=== PATIENT | male | born 1970 | race Caucasian/White ===

== ENCOUNTER 2016-03-03 14:43 | Inpatient (IN) | payer OTHER ==
[2016-03-03 15:14] VITALS: BMI 24.1
--- NOTE | 2016-03-03 15:42 | HP ---
COWS - Scale Resting Pulse: 0= IN 80 or Below Sweatin=Flushed/Facial Moisture Restless Observation: 3= Extraneous Movement Pupil Size: 2= Moderately Dilated Bone or Joint Aches: 2= Severe Diffuse Aches Runny Nose/ Eye Tearin= Runny Nose/Eyes GI Upset > 30mins: 3= Vomiting/Diarrhea Tremor Observation: 2= Slight Tremor Visible Yawning Observation: 2= >3x During Session Anxiety or Irritability: 2=Irritable/Anxious Goose Flesh Skin: 0=Smooth Skin COWS Score: 20 CIWA Score - CIWA Score Nausea/Vomitin Muscle Tremors: 3 Anxiety: 3 Agitation: 3 Paroxysmal Sweats: 2 Orientation: 0-Oriented Tacttile Disturbances: 2-Mild Itch/Numbness/Burn Auditory Disturbances: 2-Mild Harshness/Frighten Visual Disturbances: 2-Mild Sensitivity Headache: 2-Mild CIWA-Ar Total Score: 22 Admission ROS [facility] - HPI Chief Complaint: i need help to stop using heroin,cocaine and alcohol Allergies/Adverse Reactions: Allergies Allergy/AdvReac Type Severity Reaction Status Date / Time No Known Allergies Allergy Verified 03/03/16 15:29 History of Present Illness: this 45 years old male with heroin,cocaine,alcohol dependence,withdrawal symptom ,last detox 12/20 [facility] not completed, infected left leg 1 week fb left neck seen in [facility] longest period of sobriety 5 years nicotine dependence Exam Limitations: No Limitations - Ebola screening Have you traveled outside of the country in the last 21 days: No Have you been sick,other than usual withdrawal symptoms: No - Review of Systems Constitutional: Chills, Loss of Appetite, Malaise, Night Sweats, Changes in sleep, Weakness EENT: reports: Tearing, Nose Congestion Respiratory: reports: No Symptoms reported Cardiac: reports: No Symptoms Reported GI: reports: Diarrhea, Nausea, Vomiting, Abdominal cramping : reports: No Symptoms Reported Musculoskeletal: reports: Back Pain, Joint Pain, Muscle Pain, Joint Stiffness Integumentary: reports: Dryness Neuro: reports: Headache, Tremors Endocrine: reports: No Symptoms Reported Hematology: reports: No Symptoms Reported Psychiatric: reports: No Sypmtoms Reported Other Systems: Reviewed and Negative Patient History - Patient Medical History Hx Anemia: No Hx Asthma: No Hx Chronic Obstructive Pulmonary Disease (COPD): No Hx Cancer: No Hx Cardiac Disorders: No Hx Congestive Heart Failure: No Hx Hypertension: No Hx Hypercholesterolemia: No Hx Pacemaker: No HX Cerebrovascular Accident: No Hx Seizures: No Hx Dementia: No Hx Diabetes: No Hx Gastrointestinal Disorders: No Hx Liver Disease: No Hx Genitourinary Disorders: No Hx Sexually Transmitted Disorders: No Hx Renal Disease (ESRD): No Hx Thyroid Disease: No Hx Human Immunodeficiency Virus (HIV): No (last 12/20) Hx Hepatitis C: Yes Hx Depression: No Hx Suicide Attempt: No Hx Bipolar Disorder: No Hx Schizophrenia: No Other Medical History: no suicidal,no homicidal - Patient Surgical History Past Surgical History: Yes Hx Appendectomy: Yes (since 1997) Other Surgical History: sugery of fx left mandibula in 2003 - PPD History Previous Implant?: Yes Documented Results: Negative w/o proof Implanted On Prior [facility] Admission?: No PPD to be Administered?: Yes - Smoking Cessation Smoking history: Current every day smoker Have you smoked in the past 12 months: Yes Aproximately how many cigarettes per day: 0 Cigars Per Day: 0 Hx Chewing Tobacco Use: No Initiated information on smoking cessation: Yes 'Breaking Loose' booklet given: 03/03/16 - Substance & Tx. History Hx Alcohol Use: Yes Hx Substance Use: Yes Substance Use Type: Alcohol, Cocaine, Heroin Hx Substance Use Treatment: Yes ([facility] 12/20) - Substances Abused Heroin Route: Injection Frequency: Daily Amount used: 12 BAGS Age of first use: 25 Date of Last Use: 03/03/16 Alcohol Route: Oral Frequency: Daily Amount used: 1 PINT AND 1/2 OF VODKA Age of first use: 18 Date of Last Use: 03/03/16 Cocaine Route: Injection Frequency: Daily Amount used: $30-40 Age of first use: 18 Date of Last Use: 03/03/16 Family Disease History - Family Disease History Family History: Denies Admission Physical Exam S - Vital Signs Vital Signs: Vital Signs - 24 hr 03/03/16 15:13 Temperature 96.8 F L Pulse Rate 76 Respiratory 18 Rate Blood Pressure 122/72 - Physical General Appearance: Yes: Moderate Distress, Tremorous, Irritable, Sweating, Anxious HEENTM: Yes: Nasal Congestion Respiratory: Yes: Lungs Clear Neck: Yes: Within Normal Limits Breast: Yes: Within Normal Limits Cardiology: Yes: Within Normal Limits, Regular Rhythm, Regular Rate, S1, S2 Abdominal: Yes: Within Normal Limits, Normal Bowel Sounds, Non Tender, Flat, Soft Genitourinary: Yes: Within Normal Limits Back: Yes: Muscle Spasm Musculoskeletal: Yes: Back pain, Muscle Pain Extremities: Yes: Tremors Neurological: Yes: manager training and development II-XII NML intact, Fully Oriented, Alert, Motor Strength 5/5 Integumentary: Yes: Dry, Track Dinh (cellulitis of left leg) - Diagnostic (1) Opioid dependence with withdrawal Current Visit: Yes Status: Acute (2) Cocaine dependence, uncomplicated Current Visit: Yes Status: Acute (3) Alcohol dependence with uncomplicated withdrawal Current Visit: Yes Status: Acute (4) Hepatitis C Current Visit: Yes Status: Acute (5) Cellulitis of left leg Current Visit: Yes Status: Acute (6) Foreign body Current Visit: Yes Status: Acute (7) Weight loss Current Visit: Yes Status: Acute Cleared for Admission [facility] - Detox or Rehab [facility] Level of Care: Medically Managed Detox Regimen/Protocol: Methadone/Librium [facility] Breath Alcohol Content Breath Alcohol Content: 0 Urine Drug Screen - Results Drug Screen Negative: No Urine Drug Screen Results: KIRBY-Cocaine, OPI-Opiates, OXY-Oxycodone
[2016-03-03] MEDS ORDERED: hydrOXYzine PAMOATE 50 MG CAPSULE (FP) PO PRN (15:52)
[2016-03-03] MEDS ORDERED: MAGNESIUM HYDROX 2400MG/30ML ORAL SUSPENSION 30 ML CUP PO PRN (15:52)
[2016-03-03] MEDS ORDERED: IBUPROFEN 400 MG TABLET (FP) PO PRN (15:52)
[2016-03-03] MEDS ORDERED: MAGNESIUM CITRATE 300 ML BOTTLE PO PRN (15:52)
[2016-03-03] MEDS ORDERED: LOPERAMIDE HCL 2 MG CAPSULE PO PRN (15:52)
[2016-03-03] MEDS ORDERED: chlordiazePOXIDE HCL 25 MG CAPSULE PO PRN (15:52)
[2016-03-03] MEDS ORDERED: P-EPHED 60MG/TRIPROLIDI 2.5MG TABLET PO PRN (15:52)
[2016-03-03] MEDS ORDERED: guaiFENesin/D-METHORPHAN HB 10 ML UNIT-DOSE CUPS PO PRN (15:52)
[2016-03-03] MEDS ORDERED: MENTHOL/PHENOL 1 EACH UD MM PRN (15:52)
[2016-03-03] MEDS ORDERED: MAG HYDROX/AL HYDROX/SIMETH 30 ML UNIT-DOSE CUP PO PRN (15:52)
[2016-03-03] MEDS ORDERED: ACETAMINOPHEN 325 MG TABLET (FP) PO PRN (15:52)
[2016-03-03] MEDS ORDERED: NICOTINE POLACRILEX 2 MG GUM BUC PRN (15:52)
[2016-03-03] MEDS ORDERED: METHADONE HCL 10 MG TABLET (FOR DETOX USE ONLY) PO ONE ×2 (18:30→23:00)
[2016-03-03] MEDS: CEPHALEXIN MONOHYDRATE 500 MG CAPSULE (UD) PO SCH (18:30)
[2016-03-03] MEDS ORDERED: chlordiazePOXIDE HCL 25 MG CAPSULE PO ONE (18:30)
[2016-03-03] MEDS: chlordiazePOXIDE HCL 25 MG CAPSULE PO SCH ×2 (18:32→23:40)
[2016-03-03] MEDS: NICOTINE 21 MG/24 HOURS TOPICAL PATCH TD SCH (18:36)
--- NOTE | 2016-03-03 19:07 | PN ---
S Progress Note Note: 6 pm received pharmacist call hydroxyzine counteracts with methadone discontinue hydroxyzine
[2016-03-03] MEDS ORDERED: diphenhydrAMINE HCL 50 MG CAPSULE PO PRN (22:00)
[2016-03-03] MEDS: cloNIDine HCL 0.1 MG TABLET PO SCH (23:40)
[2016-03-03] MEDS: BACITRACIN 0.9 GM PACKET TP SCH (23:40)
[2016-03-03] MEDS: THIAMINE HCL 100 MG TABLET (FP) PO SCH (23:40)
[2016-03-04] MEDS: CEPHALEXIN MONOHYDRATE 500 MG CAPSULE (UD) PO SCH ×5 (00:02→23:15)
[2016-03-04 02:19] LABS: URINE APPEARANCE SLCLOUDY; URINE BILIRUBIN NEGATIVE (NEGATIVE); URINE BLOOD NEGATIVE (NEGATIVE); URINE COLOR YELLOW; URINE GLUCOSE (UA) NEGATIVE (NEGATIVE); URINE KETONE NEGATIVE (NEGATIVE); URINE LEUK ESTERASE NEGATIVE (NEGATIVE); URINE NITRITE NEGATIVE (NEGATIVE); URINE PROTEIN NEGATIVE (NEGATIVE); URINE UROBILINOGEN NEGATIVE E.U./dl (0.2-1.0)
[2016-03-04] MEDS: chlordiazePOXIDE HCL 25 MG CAPSULE PO SCH ×4 (05:55→22:18)
[2016-03-04] MEDS: PRENATAL VITAMINS W/ FOLIC ACID TABLET (FP) PO SCH (09:22)
[2016-03-04] MEDS: cloNIDine HCL 0.1 MG TABLET PO SCH ×2 (09:22→22:20)
[2016-03-04] MEDS: NICOTINE 21 MG/24 HOURS TOPICAL PATCH TD SCH (09:23)
[2016-03-04] MEDS ORDERED: METHADONE HCL 10 MG TABLET (FOR DETOX USE ONLY) PO SCH (10:00)
[2016-03-04] MEDS: BACITRACIN 0.9 GM PACKET TP SCH ×2 (10:14→22:18)
[2016-03-04 11:29] LABS: MCH 26.6 pg (25.7-33.7); PLATELET COUNT 249 K/MM3 (134-434); WHITE BLOOD COUNT 7.3 K/mm3 (4.0-10.0)
--- NOTE | 2016-03-04 11:36 | PN ---
[facility] CIWA - CIWA Score Nausea/Vomitin Muscle Tremors: 3 Anxiety: 3 Agitation: 3 Paroxysmal Sweats: 3 Orientation: 0-Oriented Tacttile Disturbances: 1-Very Mild Itch/Numbness Auditory Disturbances: 0-None Visual Disturbances: 0-None Headache: 0-None Present CIWA-Ar Total Score: 16 S COWS - Scale Resting Pulse: 0= [place] 80 or Below Sweatin=Flushed/Facial Moisture Restless Observation: 1= Difficult to Sit Still Pupil Size: 1= Pupils >than Normal Bone or Joint Aches: 1= Mild Discomfort Runny Nose/ Eye Tearin= Nasal Congestion GI Upset > 30mins: 1= Stomach Cramp Tremor Observation of Outstretched Hands: 2= Slight Tremor Visible Yawning Observation: 0= None Anxiety or Irritability: 2=Irritable/Anxious Goose Flesh Skin: 0=Smooth Skin COWS Score: 11 [facility] Progress Note (SOAP) Subjective: interrupted sleep, sweats, nausea Objective: 03/04/16 11:35 Vital Signs Temperature 98.1 F 03/04/16 10:27 Pulse Rate 75 03/04/16 10:27 Respiratory Rate 18 03/04/16 10:27 Blood Pressure 100/55 03/04/16 10:27 O2 Sat by Pulse Oximetry (%) Laboratory Tests 03/03/16 03/04/16 22:00 07:30 WBC 7.3 RBC 4.44 Hgb 11.8 Hct 36.9 MCV 83.0 MCHC 32.0 RDW 16.0 H Plt Count 249 MPV 8.0 Urine Color Yellow Urine Appearance Slcloudy Urine pH 5.0 Ur Specific [place] 1.021 Urine Protein Negative Urine Glucose (UA) Negative Urine Ketones Negative Urine Blood Negative Urine Nitrite Negative Urine Bilirubin Negative Urine Urobilinogen Negative Ur Leukocyte Esterase Negative pending labs pt aox3 in nad ambulating Assessment: 03/04/16 11:35 withdrawl sx's Plan: cont. detox increase fluids f/up pending labs ensure bid
[2016-03-04 12:06] LABS: ALBUMIN 3.2 g/dl (3.4-5.0); ALK PHOS 70 U/L (45-117); ANION GAP 2 (8-16); BILIRUBIN,TOTAL 0.5 mg/dL (0.2-1.0); CALCIUM 9.1 mg/dL (8.5-10.1); CO2 34 mmol/L (21-32); CREATININE 0.9 mg/dL (0.7-1.3); GLUCOSE,RANDOM 78 mg/dL (74-106); SGOT/AST 17 U/L (15-37); SGPT/ALT 23 U/L (12-78); TOT PROT 8.3 g/dl (6.4-8.2)
[2016-03-04] MEDS: CYCLOBENZAPRINE HCL 10 MG TABLET (FP) PO PRN (22:18)
[2016-03-04] MEDS: THIAMINE HCL 100 MG TABLET (FP) PO SCH (22:20)
[2016-03-05] MEDS: CEPHALEXIN MONOHYDRATE 500 MG CAPSULE (UD) PO SCH ×4 (05:37→23:15)
[2016-03-05] MEDS: chlordiazePOXIDE HCL 25 MG CAPSULE PO SCH ×2 (05:37→10:08)
[2016-03-05] MEDS: METHADONE HCL 5 MG TABLET (FOR DETOX USE ONLY) PO SCH (10:08)
[2016-03-05] MEDS: PRENATAL VITAMINS W/ FOLIC ACID TABLET (FP) PO SCH (10:08)
[2016-03-05] MEDS: cloNIDine HCL 0.1 MG TABLET PO SCH ×2 (10:08→22:58)
[2016-03-05] MEDS: BACITRACIN 0.9 GM PACKET TP SCH ×2 (10:09→22:46)
[2016-03-05] MEDS: NICOTINE 21 MG/24 HOURS TOPICAL PATCH TD SCH (10:09)
--- NOTE | 2016-03-05 10:58 | PN ---
S CIWA - CIWA Score Nausea/Vomitin Muscle Tremors: 3 Anxiety: 2 Agitation: 2 Paroxysmal Sweats: 1-Minimal Palms Moist Orientation: 0-Oriented Tacttile Disturbances: 1-Very Mild Itch/Numbness Auditory Disturbances: 1-Very Mild Visual Disturbances: 1-Very Mild Sensitivity Headache: 2-Mild CIWA-Ar Total Score: 16 [facility] COWS - Scale Resting Pulse: 1= [place] 81-100 Sweatin=Flushed/Facial Moisture Restless Observation: 3= Extraneous Movement Pupil Size: 1= Pupils >than Normal Bone or Joint Aches: 2= Severe Diffuse Aches Runny Nose/ Eye Tearin= Runny Nose/Eyes GI Upset > 30mins: 2= Nausea/Diarrhea Tremor Observation of Outstretched Hands: 2= Slight Tremor Visible Yawning Observation: 2= >3x During Session Anxiety or Irritability: 2=Irritable/Anxious Goose Flesh Skin: 0=Smooth Skin COWS Score: 19 S Progress Note (SOAP) Subjective: alert,irritable,anxious,interrupted sleep,tremor,pain in the body and back, Objective: 03/05/16 10:56 Vital Signs Temperature 97.7 F 03/05/16 10:07 Pulse Rate 91 H 03/05/16 10:07 Respiratory Rate 18 03/05/16 10:07 Blood Pressure 102/65 03/05/16 10:07 O2 Sat by Pulse Oximetry (%) Laboratory Last Values WBC 7.3 K/mm3 (4.0-10.0) 03/04/16 07:30 RBC 4.44 M/mm3 (4.00-5.60) 03/04/16 07:30 Hgb 11.8 GM/dL (11.7-16.9) 03/04/16 07:30 Hct 36.9 % (35.4-49) 03/04/16 07:30 MCV 83.0 fl (80-96) 03/04/16 07:30 MCHC 32.0 g/dl (32.0-35.9) 03/04/16 07:30 RDW 16.0 % (11.9-15.9) H 03/04/16 07:30 Plt Count 249 K/MM3 (134-434) 03/04/16 07:30 MPV 8.0 fl (7.5-11.1) 03/04/16 07:30 Sodium 138 mmol/L (136-145) 03/04/16 07:30 Potassium 5.0 mmol/L (3.5-5.1) 03/04/16 07:30 Chloride 102 mmol/L (98-107) 03/04/16 07:30 Carbon Dioxide 34 mmol/L (21-32) H 03/04/16 07:30 Anion Gap 2 (8-16) L 03/04/16 07:30 BUN 21 mg/dL (7-18) H 03/04/16 07:30 Creatinine 0.9 mg/dL (0.7-1.3) 03/04/16 07:30 Creat Clearance w eGFR > 60 (>60) 03/04/16 07:30 Random Glucose 78 mg/dL (74-106) 03/04/16 07:30 Calcium 9.1 mg/dL (8.5-10.1) 03/04/16 07:30 Total Bilirubin 0.5 mg/dL (0.2-1.0) 03/04/16 07:30 AST 17 U/L (15-37) 03/04/16 07:30 ALT 23 U/L (12-78) 03/04/16 07:30 Alkaline Phosphatase 70 U/L (45-117) 03/04/16 07:30 Total Protein 8.3 g/dl (6.4-8.2) H 03/04/16 07:30 Albumin 3.2 g/dl (3.4-5.0) L 03/04/16 07:30 Urine Color Yellow 03/03/16 22:00 Urine Appearance Slcloudy 03/03/16 22:00 Urine pH 5.0 (5.0-8.0) 03/03/16 22:00 Ur Specific [place] 1.021 (1.001-1.035) 03/03/16 22:00 Urine Protein Negative (NEGATIVE) 03/03/16 22:00 Urine Glucose (UA) Negative (NEGATIVE) 03/03/16 22:00 Urine Ketones Negative (NEGATIVE) 03/03/16 22:00 Urine Blood Negative (NEGATIVE) 03/03/16 22:00 Urine Nitrite Negative (NEGATIVE) 03/03/16 22:00 Urine Bilirubin Negative (NEGATIVE) 03/03/16 22:00 Urine Urobilinogen Negative E.U./dl (0.2-1.0) 03/03/16 22:00 Ur Leukocyte Esterase Negative (NEGATIVE) 03/03/16 22:00 RPR Titer Nonreactive (NONREACTIVE) 03/04/16 07:30 03/05/16 10:59 Assessment: 03/05/16 10:59 withdrawal symptom Plan: continue detox
[2016-03-05] MEDS: chlordiazePOXIDE 5 MG CAPSULE PO SCH ×2 (17:37→22:47)
[2016-03-05] MEDS: THIAMINE HCL 100 MG TABLET (FP) PO SCH (22:47)
[2016-03-05] MEDS: CYCLOBENZAPRINE HCL 10 MG TABLET (FP) PO PRN (22:47)
[2016-03-06] MEDS: chlordiazePOXIDE 5 MG CAPSULE PO SCH ×2 (06:00→11:25)
[2016-03-06] MEDS: CEPHALEXIN MONOHYDRATE 500 MG CAPSULE (UD) PO SCH ×3 (06:33→17:30)
[2016-03-06] MEDS: PRENATAL VITAMINS W/ FOLIC ACID TABLET (FP) PO SCH (11:24)
[2016-03-06] MEDS: METHADONE HCL 5 MG TABLET (FOR DETOX USE ONLY) PO SCH (11:24)
[2016-03-06] MEDS: cloNIDine HCL 0.1 MG TABLET PO SCH ×2 (11:24→22:26)
[2016-03-06] MEDS: BACITRACIN 0.9 GM PACKET TP SCH ×2 (11:25→22:26)
[2016-03-06] MEDS: NICOTINE 21 MG/24 HOURS TOPICAL PATCH TD SCH (11:26)
--- NOTE | 2016-03-06 12:41 | PN ---
[facility] Progress Note (SOAP) Subjective: alert,irritable,anxious,pain in the body and back,interrupted sleep Objective: 03/06/16 12:41 Vital Signs Temperature 97.0 F L 03/06/16 10:00 Pulse Rate 76 03/06/16 10:00 Respiratory Rate 16 03/06/16 10:00 Blood Pressure 116/85 03/06/16 10:00 O2 Sat by Pulse Oximetry (%) Assessment: 03/06/16 12:41 withdrawal symptom Plan: continue detox
[2016-03-06] MEDS: chlordiazePOXIDE HCL 10 MG CAPSULE PO SCH ×2 (17:30→22:26)
[2016-03-06] MEDS: THIAMINE HCL 100 MG TABLET (FP) PO SCH (22:26)
[2016-03-07] MEDS: chlordiazePOXIDE HCL 10 MG CAPSULE PO SCH ×2 (05:31→10:38)
[2016-03-07] MEDS: CEPHALEXIN MONOHYDRATE 500 MG CAPSULE (UD) PO SCH ×4 (05:32→18:41)
[2016-03-07] MEDS ORDERED: METHADONE HCL 10 MG TABLET (FOR DETOX USE ONLY) PO SCH (10:00)
[2016-03-07] MEDS: cloNIDine HCL 0.1 MG TABLET PO SCH ×2 (10:38→22:40)
[2016-03-07] MEDS: PRENATAL VITAMINS W/ FOLIC ACID TABLET (FP) PO SCH (10:38)
[2016-03-07] MEDS: NICOTINE 21 MG/24 HOURS TOPICAL PATCH TD SCH (10:38)
[2016-03-07] MEDS: BACITRACIN 0.9 GM PACKET TP SCH ×2 (10:39→22:40)
--- NOTE | 2016-03-07 12:47 | PN ---
[facility] Progress Note (SOAP) Subjective: SWEATING,INTERRUPTED SLEEP,RESTLESS Objective: 03/07/16 12:46 Vital Signs - 8 hr 03/07/16 03/07/16 06:00 10:00 Temperature 98.4 F 97.3 F L Pulse Rate 61 90 Respiratory 18 18 Rate Blood Pressure 123/68 112/56 Laboratory Last Values WBC 7.3 K/mm3 (4.0-10.0) 03/04/16 07:30 RBC 4.44 M/mm3 (4.00-5.60) 03/04/16 07:30 Hgb 11.8 GM/dL (11.7-16.9) 03/04/16 07:30 Hct 36.9 % (35.4-49) 03/04/16 07:30 MCV 83.0 fl (80-96) 03/04/16 07:30 MCHC 32.0 g/dl (32.0-35.9) 03/04/16 07:30 RDW 16.0 % (11.9-15.9) H 03/04/16 07:30 Plt Count 249 K/MM3 (134-434) 03/04/16 07:30 MPV 8.0 fl (7.5-11.1) 03/04/16 07:30 Sodium 138 mmol/L (136-145) 03/04/16 07:30 Potassium 5.0 mmol/L (3.5-5.1) 03/04/16 07:30 Chloride 102 mmol/L (98-107) 03/04/16 07:30 Carbon Dioxide 34 mmol/L (21-32) H 03/04/16 07:30 Anion Gap 2 (8-16) L 03/04/16 07:30 BUN 21 mg/dL (7-18) H 03/04/16 07:30 Creatinine 0.9 mg/dL (0.7-1.3) 03/04/16 07:30 Creat Clearance w eGFR > 60 (>60) 03/04/16 07:30 Random Glucose 78 mg/dL (74-106) 03/04/16 07:30 Calcium 9.1 mg/dL (8.5-10.1) 03/04/16 07:30 Total Bilirubin 0.5 mg/dL (0.2-1.0) 03/04/16 07:30 AST 17 U/L (15-37) 03/04/16 07:30 ALT 23 U/L (12-78) 03/04/16 07:30 Alkaline Phosphatase 70 U/L (45-117) 03/04/16 07:30 Total Protein 8.3 g/dl (6.4-8.2) H 03/04/16 07:30 Albumin 3.2 g/dl (3.4-5.0) L 03/04/16 07:30 Urine Color Yellow 03/03/16 22:00 Urine Appearance Slcloudy 03/03/16 22:00 Urine pH 5.0 (5.0-8.0) 03/03/16 22:00 Ur Specific [place] 1.021 (1.001-1.035) 03/03/16 22:00 Urine Protein Negative (NEGATIVE) 03/03/16 22:00 Urine Glucose (UA) Negative (NEGATIVE) 03/03/16 22:00 Urine Ketones Negative (NEGATIVE) 03/03/16 22:00 Urine Blood Negative (NEGATIVE) 03/03/16 22:00 Urine Nitrite Negative (NEGATIVE) 03/03/16 22:00 Urine Bilirubin Negative (NEGATIVE) 03/03/16 22:00 Urine Urobilinogen Negative E.U./dl (0.2-1.0) 03/03/16 22:00 Ur Leukocyte Esterase Negative (NEGATIVE) 03/03/16 22:00 RPR Titer Nonreactive (NONREACTIVE) 03/04/16 07:30 LABS NOTED Assessment: 03/07/16 12:46 WITHDRAWAL SX. Plan: CONTINUE DETOX
[2016-03-07] MEDS: CYCLOBENZAPRINE HCL 10 MG TABLET (FP) PO PRN (22:41)
[2016-03-07] MEDS: THIAMINE HCL 100 MG TABLET (FP) PO SCH (22:41)
[2016-03-08] MEDS: CEPHALEXIN MONOHYDRATE 500 MG CAPSULE (UD) PO SCH ×2 (00:59→05:43)
[2016-03-08] MEDS ORDERED: METHADONE HCL 5 MG TABLET (FOR DETOX USE ONLY) PO SCH (06:00)
--- NOTE | 2016-03-08 08:04 | PN ---
S Progress Note (SOAP) Subjective: alert,no complaint Objective: 03/08/16 08:03 Vital Signs Temperature 98.1 F 03/08/16 06:00 Pulse Rate 65 03/08/16 06:00 Respiratory Rate 16 03/08/16 06:00 Blood Pressure 107/62 03/08/16 06:00 O2 Sat by Pulse Oximetry (%) Assessment: 03/08/16 08:03 detox complete,no withdrawal symptom Plan: discharge today,follow up with after care program as arrangement
--- NOTE | 2016-03-08 08:08 | DS ---
[facility] Detox Discharge Summary Admission Date: 03/03/16 Discharge Date: 03/08/16 - History Present History: Alcohol Dependence, Cocaine Dependence, Opioid Dependence Additional Comments: follow up with after care program as arrangement and pmd for medical problem patient stated he is not ready to go to rehab as plan,will follow up with outpatient program Pertinent Past History: hepatitis c cellulitis lef tleg foreign left neck weight loss - Physical Exam Results Vital Signs: Vital Signs Temperature 98.1 F 03/08/16 06:00 Pulse Rate 65 03/08/16 06:00 Respiratory Rate 16 03/08/16 06:00 Blood Pressure 107/62 03/08/16 06:00 O2 Sat by Pulse Oximetry (%) Pertinent Admission Physical Exam Findings: withdrawal symptom - Treatment Hospital Course: Detox Protocol Followed, Detoxed Safely, Responded well, Discharged Condition Good, Rehab Referral Accepted Patient has Accepted [facility] Referral [facility] - Medication Discharge Medications: Ambulatory Orders NK [No Known Home Medication] 03/03/16 - Diagnosis (1) Opioid dependence with withdrawal Current Visit: Yes Status: Acute (2) Cocaine dependence, uncomplicated Current Visit: Yes Status: Acute (3) Alcohol dependence with uncomplicated withdrawal Current Visit: Yes Status: Acute (4) Hepatitis C Current Visit: Yes Status: Acute (5) Cellulitis of left leg Current Visit: Yes Status: Acute (6) Foreign body Current Visit: Yes Status: Acute (7) Weight loss Current Visit: Yes Status: Acute - AMA Did Patient Leave Against Medical Advice: No
--- NOTE | 2016-03-08 08:14 | PN ---
[facility] Progress Note Note: patient [facility] [id number] [phone],not ready to go to rehab
[2016-03-08 10:20] VITALS: BP 112/72; PULSE 87; TEMP 98.3
== END 2016-03-08 09:28 | disposition home or self-care (01) | DRG 773 ==
LOC: YASAS 14:43 → Y6N 15:59
PROVIDERS: ADMIT Internal Medicine Addiction Medicine; ATTEND Internal Medicine Addiction Medicine
PROC: HZ2ZZZZ Detoxification Services for Substance Abuse Treatment (ICD-10-PCS; principal; 2016-03-03)
DX: F11.23 Opioid dependence with withdrawal (principal); F10.230 Alcohol dependence with withdrawal, uncomplicated; F14.20 Cocaine dependence, uncomplicated; F17.210 Nicotine dependence, cigarettes, uncomplicated; B18.2 Chronic viral hepatitis C; L03.116 Cellulitis of left lower limb; M79.5 Residual foreign body in soft tissue; Z87.898 Personal history of other specified conditions
CPT/HCPCS: 36415; 80053; 81003; 85027; 86593; 93005; 93010